=== PATIENT | female | born 1970 | race Caucasian/White ===

== ENCOUNTER 2023-08-10 11:52 | Day surgery (SDC) | payer BC ==
[2023-08-10] MEDS ORDERED: diphenhydrAMINE HCL 50 MG CAPSULE PO PRN (12:05)
[2023-08-10] MEDS ORDERED: HYDROCORTISONE SOD SUCCINATE 100 MG/2 ML VIAL IVPUSH PRN (12:06)
[2023-08-10] MEDS: IRON SUCROSE INJECTION 200 MG in SODIUM CHLORIDE 100 ML IVPB ONE (12:16)
[2023-08-10 13:19] VITALS: BP 128/70; PULSE 60; RESP 18; TEMP 98.7
== END 2023-08-10 13:19 | disposition home or self-care (01) ==
LOC: FINFUSION 11:52 → FM/S 11:56 → FINFUSION 13:19
PROVIDERS: ATTEND Family Medicine
PROC: 3E033GC Introduction of Other Therapeutic Substance into Peripheral Vein, Percutaneous Approach (ICD-10-PCS; principal; 2023-08-10)
DX: D50.9 Iron deficiency anemia, unspecified (principal)
CPT/HCPCS: 96365; J1756

== ENCOUNTER 2023-08-17 10:47 | Day surgery (SDC) | payer BC ==
[2023-08-17] MEDS: IRON SUCROSE INJECTION 200 MG in SODIUM CHLORIDE 100 ML IVPB ONE (11:27)
[2023-08-17 12:52] VITALS: BP 105/68; PULSE 60; RESP 16; TEMP 98.1
== END 2023-08-17 13:06 | disposition home or self-care (01) ==
LOC: FINFUSION 10:47 → FM/S 10:48 → FINFUSION 13:06
PROVIDERS: ATTEND Family Medicine
PROC: 3E033GC Introduction of Other Therapeutic Substance into Peripheral Vein, Percutaneous Approach (ICD-10-PCS; principal; 2023-08-17)
DX: D50.9 Iron deficiency anemia, unspecified (principal)
CPT/HCPCS: 96365; J1756